=== PATIENT | male | born 1955 | race Caucasian/White ===

== ENCOUNTER 2019-10-01 11:19 | Inpatient (IN) | payer OTHER ==
[2019-10-01] MEDS ORDERED: ATROPINE SULF 1 MG/10 ML SYR IV ONE (11:53)
[2019-10-01] MEDS ORDERED: ASPIRIN 81 MG CHEWABLE TABLET ONE (11:53)
[2019-10-01 12:06] LABS: Protime INR 1.09
[2019-10-01 12:10] LABS: Absolute Lymphocytes (CBC) 1.2 K/uL (0.7-4.9); Basophils % 1.4 % (0-1.3); Hematocrit 38.4 % (39.6-49.0); Lymphocytes % 19.7 % (15.3-44.8); MPV 8.6 fL (7.6-11.3); RBC Red Blood Cell Count 4.21 M/uL (4.33-5.43)
--- NOTE | 2019-10-01 12:19 | RAD REPORT ---
EXAM DESCRIPTION: RAD - Chest Single View - 10/01/2019 12:10 pm CLINICAL HISTORY: near syncope, bradycardia Chest pain. COMPARISON: No comparisons FINDINGS: Portable technique limits examination quality. The lungs are grossly clear. The heart is normal in size. No displaced fractures. IMPRESSION: No acute intrathoracic process suspected.
[2019-10-01 12:22] LABS: BUN Blood Urea Nitrogen 9 mg/dL (7-18); Bicarbonate 27 mmol/L (21-32); Glucose Level 98 mg/dL (74-106); Magnesium 2.2 mg/dL (1.8-2.4); NT PRO-BNP 807 pg/mL (<125); Potassium 3.5 mmol/L (3.5-5.1); Sodium Level 141 mmol/L (136-145); Troponin (Emerg Dept Use Only) < 0.02 ng/mL (0.0-0.045)
[2019-10-01 12:37] LABS: T3 Free 2.9 pg/mL (2.18-3.98); T4,Total 10.2 ug/dL (4.5-12.1); Thyroid Stimulating Hormone 1.75 uIU/mL (0.360-3.740)
--- NOTE | 2019-10-01 12:49 | ER ---
[facility] Name: Shawn Culver Age: 64 yrs Sex: Male : 1955 Arrival Date: 10/01/2019 Time: 11:24 Bed 2 Private MD: Diagnosis: Bradycardia, unspecified;Syncope and collapse Presentation: 10/01 11:30 Presenting complaint: Patient states: became dizzy and felt like he was going to pass em out, denies passing out, reports feeling better now, denies chest pain or shortness of breath. Transition of care: patient was not received from another setting of care. Onset of symptoms was October 01, 2019. Risk Assessment: Do you want to hurt yourself or someone else? Patient reports no desire to harm self or others. Initial Sepsis Screen: Does the patient meet any 2 criteria? No. Patient's initial sepsis screen is negative. Does the patient have a suspected source of infection? No. Patient's initial sepsis screen is negative. Care prior to arrival: None. 11:30 Method Of Arrival: Ambulatory em 11:30 Acuity: CATALINA 2 em Historical: - Allergies: 11:49 No Known Allergies; em - Home Meds: 11:49 metoprolol tartrate 100 mg Oral tab [Active]; meloxicam 15 mg oral tab [Active]; em amlodipine 10 mg tab [Active]; lisinopril 30 mg Oral tab [Active]; isosorbide mononitrate 30 mg Oral Tb24 [Active]; - PMHx: 11:49 Hypertension; em - PSHx: 11:49 Tonsillectomy; em - Immunization history:: Adult Immunizations up to date. - Social history:: Smoking status: Patient reports the use of cigarette tobacco products, smokes two packs cigarettes per day. - Ebola Screening: : Patient negative for fever greater than or equal to 101.5 degrees Fahrenheit, and additional compatible Ebola Virus Disease symptoms Patient denies exposure to infectious person Patient denies travel to an Ebola-affected area in the 21 days before illness onset No symptoms or risks identified at this time. - Family history:: not pertinent. - Hospitalizations: : No recent hospitalization is reported. Screenin:33 Abuse screen: Denies threats or abuse. Nutritional screening: No deficits noted. em Tuberculosis screening: No symptoms or risk factors identified. Fall Risk No fall in past 12 months (0 pts). No secondary diagnosis (0 pts). IV access (20 points). Total Underwood Fall Scale indicates No Risk (0-24 pts). Assessment: 11:31 General: Appears in no apparent distress. comfortable, Behavior is calm, cooperative. em Pain: Denies pain. Neuro: Level of Consciousness is awake, alert, obeys commands, Oriented to person. Cardiovascular: Denies chest pain, shortness of breath, Capillary refill < 3 seconds Patient's skin is warm and dry. Rhythm is sinus bradycardia. Respiratory: Airway is patent Respiratory effort is even, unlabored, Respiratory pattern is regular, symmetrical, Denies shortness of breath. GI: Patient currently denies nausea. Derm: Skin is intact, is thin, Skin is pink, warm \T\ dry. Musculoskeletal: Capillary refill < 3 seconds, Range of motion: intact in all extremities. 12:02 Reassessment: Patient appears in no apparent distress at this time. No changes from em previously documented assessment. Patient and/or family updated on plan of care and expected duration. Pain level reassessed. Patient denies pain at this time. Patient states symptoms have improved. 13:24 Reassessment: Patient appears in no apparent distress at this time. No changes from em previously documented assessment. Patient and/or family updated on plan of care and expected duration. Pain level reassessed. Patient denies pain at this time. Vital Signs: 11:44 BP 144 / 57; Pulse 32 MON; Resp 16; Pulse Ox 100% on R/A; em 11:57 BP 145 / 63; Pulse 31; Resp 16; Pulse Ox 100% on R/A; em 12:00 BP 127 / 73; Pulse 39; em 12:02 BP 114 / 68; Pulse 66; em 13:24 BP 149 / 72; Pulse 56; Resp 14; Temp 98.4; Pulse Ox 100% on R/A; Pain 0/10; em 11:44 at bedside, aware of pt VS em ED Course: 11:24 Patient arrived in ED. mr 11:28 Cortez Baldwin MD is Attending Physician. rn 11:29 Branden Lal, LISANDRA is Primary Nurse. em 11:33 Patient has correct armband on for positive identification. Placed in gown. Bed in low em position. Call light in reach. Adult w/ patient. 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 Pulse ox on. NIBP on. 11:45 Arm band placed on. em 11:45 Initial lab(s) drawn, by me, sent to lab. Inserted saline lock: 20 gauge in right em antecubital area, using aseptic technique. Blood collected. 11:47 Triage completed. em 12:10 XRAY Chest (1 view) In Process Unspecified. EDMS 12:48 CT Head Brain wo Cont In Process Unspecified. EDMS 12:48 Ruthie Crow MD is Hospitalizing Provider. rn 13:24 No provider procedures requiring assistance completed. Patient admitted, IV remains in em place. Administered Medications: 11:58 Drug: Atropine 0.5 mg Route: IVP; Site: right antecubital; em 12:00 Follow up: Response: No adverse reaction; Cardiac rhythm is unchanged em 12:02 Drug: Atropine 0.5 mg Route: IVP; Site: right antecubital; em 12:04 Follow up: Response: No adverse reaction; Cardiac rhythm changed em 13:16 Drug: Aspirin 81 mg Route: PO; em 13:21 Follow up: Response: No adverse reaction em Outcome: 12:49 Decision to Hospitalize by Provider. rn 13:57 Admitted to Tele accompanied by tech, via wheelchair, room 408, with chart, Report em called to LISANDRA Devries 13:57 Condition: good 13:57 Instructed on the need for admit, Demonstrated understanding of instructions. 14:08 Patient left the ED. em Signatures: Dispatcher [employer] Kelly Sultana Edgar, RN RN Cortez Baldwin MD MD rn
--- NOTE | 2019-10-01 12:49 | EDPHYS ---
Physician Documentation [facility] Name: Shawn Culver Age: 64 yrs Sex: Male : 1955 Arrival Date: 10/01/2019 Time: 11:24 Bed 2 Private MD: ED Physician Cortez Baldwin HPI: 10/01 12:05 This 64 yrs old Male presents to ER via Ambulatory with complaints of rn dizziness, weakness, near syncope. 12:05 The patient has experienced near-syncope. Onset: The symptoms/episode began/occurred rn just prior to arrival. Duration: This was a single episode. Associated signs and symptoms: Pertinent positives: dizziness, lightheadedness, Pertinent negatives: abdominal pain, blurred vision, chest pain. Current symptoms: Currently, the patient is not experiencing any symptoms. The patient has not experienced similar symptoms in the past. Reports almost passed out, got lightheaded, was standing at work, no change in position, no preceding or current chest pain/sob/abd pain. No focal neuro complaint. Feels better now. No recent medication change or head injury.. Historical: - Allergies: 11:49 No Known Allergies; em - Home Meds: 11:49 metoprolol tartrate 100 mg Oral tab [Active]; meloxicam 15 mg oral tab [Active]; em amlodipine 10 mg tab [Active]; lisinopril 30 mg Oral tab [Active]; isosorbide mononitrate 30 mg Oral Tb24 [Active]; - PMHx: 11:49 Hypertension; em - PSHx: 11:49 Tonsillectomy; em - Immunization history:: Adult Immunizations up to date. - Social history:: Smoking status: Patient reports the use of cigarette tobacco products, smokes two packs cigarettes per day. - Ebola Screening: : Patient negative for fever greater than or equal to 101.5 degrees Fahrenheit, and additional compatible Ebola Virus Disease symptoms Patient denies exposure to infectious person Patient denies travel to an Ebola-affected area in the 21 days before illness onset No symptoms or risks identified at this time. - Family history:: not pertinent. - Hospitalizations: : No recent hospitalization is reported. ROS: 12:05 Constitutional: Negative for fever, chills, and weight loss, Eyes: Negative for injury, rn pain, redness, and discharge, Neck: Negative for injury, pain, and swelling, Cardiovascular: Negative for chest pain, palpitations, and edema, Respiratory: Negative for shortness of breath, cough, wheezing, and pleuritic chest pain, Abdomen/GI: Negative for abdominal pain, nausea, vomiting, diarrhea, and constipation, MS/Extremity: Negative for injury and deformity, Skin: Negative for injury, rash, and discoloration, Neuro: Negative for headache, numbness, tingling, and seizure. Exam: 11:44 ECG was reviewed by the Attending Physician. rn 12:05 Constitutional: This is a well developed, well nourished patient who is awake, alert, rn and in no acute distress. Head/Face: Normocephalic, atraumatic. Eyes: Pupils equal round and reactive to light, extra-ocular motions intact. Lids and lashes normal. Conjunctiva and sclera are non-icteric and not injected. Cornea within normal limits. Periorbital areas with no swelling, redness, or edema. Neck: Trachea midline, no thyromegaly or masses palpated, and no cervical lymphadenopathy. Supple, full range of motion without nuchal rigidity, or vertebral point tenderness. No Meningismus. Cardiovascular: Bradycardic, regular Respiratory: Lungs have equal breath sounds bilaterally, clear to auscultation. No increased work of breathing, no retractions or nasal flaring. Abdomen/GI: soft, non-tender Skin: Warm, dry with normal turgor. Normal color with no rashes, no lesions, and no evidence of cellulitis. MS/ Extremity: Pulses equal, no cyanosis. Neurovascular intact. Full, normal range of motion. Equal circumference. Neuro: Awake and alert, GCS 15, oriented to person, place, time, and situation. Cranial nerves II-XII grossly intact. Motor strength 5/5 in all extremities. Sensory grossly intact. Cerebellar exam normal. Normal gait. Vital Signs: 11:44 BP 144 / 57; Pulse 32 MON; Resp 16; Pulse Ox 100% on R/A; em 11:57 BP 145 / 63; Pulse 31; Resp 16; Pulse Ox 100% on R/A; em 12:00 BP 127 / 73; Pulse 39; em 12:02 BP 114 / 68; Pulse 66; em 13:24 BP 149 / 72; Pulse 56; Resp 14; Temp 98.4; Pulse Ox 100% on R/A; Pain 0/10; em 11:44 at bedside, aware of pt VS em MDM: 11:28 Patient medically screened. rn 11:51 Differential Diagnosis: cardiac arrhythmia, idiopathic syncope, vasovagal episode. Data rn reviewed: vital signs, nurses notes, EKG. ED course: pt with bradycardia, no stemi, lookds more like J point elevation and LVH, and patient denies chest pain/sob. No new medications, but takes 100mg metoprolol and imdur in addition to lisinopril. Bradycardia most likely cause of his symptoms today. Denies taking any extra meds or recent changes.. 12:03 ED course: Responded well to atropine 1mg, HR now in 60s. rn 12:48 Counseling: I had a detailed discussion with the patient and/or guardian regarding: the rn historical points, exam findings, and any diagnostic results supporting the discharge/admit diagnosis, lab results, radiology results, the need for further work-up and treatment in the hospital. Response to treatment: the patient's symptoms have markedly improved after treatment, the patient is now symptom free. ED course: Admitted to Dr. Crow for near syncope and bradycardia, most likely medication related, but will need cardiology consult. . 10/01 11:44 Order name: Basic Metabolic Panel; Complete Time: 12:32 rn 10/01 11:44 Order name: CBC with Diff; Complete Time: 12:32 rn 10/01 11:44 Order name: Magnesium; Complete Time: 12:32 rn 10/01 11:44 Order name: NT PRO-BNP; Complete Time: 12:32 rn 10/01 11:44 Order name: PT-INR; Complete Time: 12:32 rn 10/01 11:44 Order name: Troponin (emerg Dept Use Only); Complete Time: 12:32 rn 10/01 12:00 Order name: TSH; Complete Time: 12:44 sg 10/01 12:00 Order name: T3 Free; Complete Time: 12:44 sg 10/01 12:00 Order name: T4,Total; Complete Time: 12:44 sg 10/01 12:59 Order name: CBC with Automated Diff EDMS 10/01 12:59 Order name: CBC with Automated Diff EDMS 10/01 12:59 Order name: Comprehensive Metabolic Panel EDMS 10/01 12:59 Order name: Comprehensive Metabolic Panel [facility] 10/01 12:59 Order name: Lipid Profile [facility] 10/01 11:44 Order name: XRAY Chest (1 view); Complete Time: 12:32 rn 10/01 11:44 Order name: EKG; Complete Time: 11:44 rn 10/01 11:44 Order name: Cardiac monitoring; Complete Time: 12:04 rn 10/01 11:44 Order name: EKG - Nurse/Tech; Complete Time: 12:04 rn 10/01 11:44 Order name: IV Saline Lock; Complete Time: 12:04 rn 10/01 11:44 Order name: Labs collected and sent; Complete Time: 12:04 rn 10/01 11:44 Order name: O2 Per Protocol; Complete Time: 12:04 rn 10/01 11:44 Order name: O2 Sat Monitoring; Complete Time: 12:04 rn 10/01 11:50 Order name: CT Head Brain wo Cont; Complete Time: 13:11 rn 10/01 12:59 Order name: CONS Pharmacy Consult [facility] 10/01 12:59 Order name: Heart Healthy [facility] 10/01 12:59 Order name: Lipid Profile [facility] EC:44 Rate is 31 beats/min. Rhythm is regular. QRS [place] is Normal. [place] interval is normal. QRS rn interval is normal. QT interval is normal. No Q waves. T waves are Inverted in leads II, III, aVF, V5, V6. No ST changes noted. Clinical impression: Sinus bradycardia and Nonspecific t wave inversion, LVH. Interpreted by me. Reviewed by me. Administered Medications: 11:58 Drug: Atropine 0.5 mg Route: IVP; Site: right antecubital; em 12:00 Follow up: Response: No adverse reaction; Cardiac rhythm is unchanged em 12:02 Drug: Atropine 0.5 mg Route: IVP; Site: right antecubital; em 12:04 Follow up: Response: No adverse reaction; Cardiac rhythm changed em 13:16 Drug: Aspirin 81 mg Route: PO; em 13:21 Follow up: Response: No adverse reaction em Disposition: 10/01/19 12:49 Hospitalization ordered by Ruthie Crow for Inpatient Admission. Preliminary diagnosis are Bradycardia, unspecified, Syncope and collapse. - Bed requested for Telemetry/MedSurg (Inpatient). - Status is Inpatient Admission. em - Condition is Stable. - Problem is new. - Symptoms have improved. UTI on Admission? No Signatures: Dispatcher [employer] EDHarshad Vann RN RN Branden Lal RN RN Cortez Baldwin MD MD turning machine operator: (The following items were deleted from the chart) 13:10 12:49 Hospitalization Ordered by Ruthie Crow MD for Inpatient Admission. Preliminary sg diagnosis is Bradycardia, unspecified; Syncope and collapse. Bed requested for Telemetry/MedSurg (Inpatient). Status is Inpatient Admission. Condition is Stable. Problem is new. Symptoms have improved. UTI on Admission? No. rn 14:08 13:10 10/01/2019 12:49 Hospitalization Ordered by Ruthie Crow MD for Inpatient em Admission. Preliminary diagnosis is Bradycardia, unspecified; Syncope and collapse. Bed requested for Telemetry/MedSurg (Inpatient). Status is Inpatient Admission. Condition is Stable. Problem is new. Symptoms have improved. UTI on Admission? No. sg
[2019-10-01] MEDS ORDERED: ALBUTEROL 2.5 MG/3 ML NEB SOL NEB PRN (12:56)
[2019-10-01] MEDS ORDERED: ONDANSETRON 4 MG/2 ML VIAL IV PRN (12:56)
--- NOTE | 2019-10-01 12:56 | RAD REPORT ---
EXAM DESCRIPTION: CT - Head Brain Wo Cont - 10/01/2019 12:48 pm CLINICAL HISTORY: Dizziness, presyncope COMPARISON: None. TECHNIQUE: Axial 5 mm thick images of the head were obtained without IV contrast. All CT scans are performed using dose optimization technique as appropriate and may include automated exposure control or mA/KV adjustment according to patient size. FINDINGS: No intracranial hemorrhage, mass, edema or shift of mid-line structures. No acute infarcti on changes seen. No abnormal extra-axial fluid collections. Ventricles are normal size. Atrophy is mi nimal. Mild chronic ischemic change. Mastoid air cells and visualized portions of the paranasal sinuses are clear. No acute bony findings. IMPRESSION: Minimal atrophy and mild chronic ischemic change. No acute intracranial findings.
--- NOTE | 2019-10-01 13:37 | EKG ---
Test Date: 2019-10-01 Test Time: 11:44:32 Cleaner And Trimmer: GLORIA MEASUREMENT RESULTS: Intervals: Rate: 31 FL: 190 QRSD: 104 QT: 548 QTc: 393 [place]: P: 65 FL: 190 QRS: 60 T: -38 INTERPRETIVE STATEMENTS: Marked sinus bradycardia ST elevation, consider anterior injury or acute infarct ACUTE MS Abnormal ECG Compared to ECG 07/22/2006 04:19:35 ST (T wave) deviation now present Myocardial infarct finding now present T-wave abnormality no longer present Electronically Signed On 10-01-19 13:36:51 CHILD CUSTODY EVALUATOR by Shahab Hampton
--- NOTE | 2019-10-01 14:24 | P.HP ---
Certification for Inpatient Patient admitted to: Observation Patient will require the following post-hospital care: None Practitioner: I am a practitioner with admitting privileges, knowledge of patient current condition, hospital course, and medical plan of care. Services: Services provided to patient in accordance with Admission requirements found in Title 42 Section 412.3 of the Code of Federal Regulations Patient History Date of Service: 10/02/19 Reason for admission: Near syncope History of Present Illness: Mr Culver is a 64-year-old male with history of hypertension who presented to the ER after a near syncope event this morning, while at work. Patient reported sudden onset of generalized weakness followed by lightheadedness and then he fell to his knees and hand. He denies any LOC. He reports many episodes of lightheadedness with no LOC. Allergies No Known Allergies Allergy (Unverified 10/01/19 13:45) Home Medications: Amlodipine [Norvasc] 10 mg PO DAILY 10/01/19 Isosorbide Mononitrate [Isosorbide Mononitrate ER] 1 tab PO DAILY 10/01/19 Lisinopril [Zestril] 30 mg PO DAILY 10/01/19 Meloxicam 15 mg PO DAILY 10/01/19 Metoprolol Tartrate 100 mg PO DAILY 10/01/19 - Past Medical/Surgical History -: Hypertension -: Tonsillectomy - Family History Mother -: Heart disease, Lung disease Father -: Heart disease, Cancer - Social History Smoking Status: Current every day smoker Alcohol use: No CD- Drugs: No Review of Systems 10-point ROS is otherwise unremarkable Neurological: Weakness Physical Examination - Vital Signs Blood Pressure: 127/73 Pulse: 39 Respirations: 16 - Physical Exam General: Alert, In no apparent distress HEENT: Atraumatic, PERRLA, Mucous membr. moist/pink, EOMI, Sclerae nonicteric Neck: Supple, 2+ carotid pulse no bruit, No LAD, Without JVD or thyroid abnormality Respiratory: Clear to auscultation bilaterally, Normal air movement Cardiovascular: Normal S1 S2, Other (Bradycardia) Gastrointestinal: Normal bowel sounds, No tenderness Musculoskeletal: No tenderness Integumentary: No rashes Neurological: Normal gait, Normal speech, Normal strength at 5/5 x4 extr, Normal tone, Normal affect Lymphatics: No axilla or inguinal lymphadenopathy - Studies Laboratory Data (last 24 hrs) 10/01/19 11:50: PT 12.8 H, INR 1.09 10/01/19 11:50: WBC 5.9, Hgb 13.3 L, Hct 38.4 L, Plt Count 178 10/01/19 11:50: Sodium 141, Potassium 3.5, BUN 9, Creatinine 1.25, Glucose 98, Magnesium 2.2 Assessment and Plan - Plan Mr Culver is 64 y/o male who presented with near syncope. #Symptomatic bradycardia- EKG noted, probably early repolarization. He denies any chest pain. -He is on metoprolol 100mg daily, which he took this morning. -Trend troponin. obtain Echocardiogram -Atropine at bedside. Remain on telemetry. Repeat EKG. -reverse bb effect with glucagon -Avoid chronotropic meds -TSH is unremarkable. -Supervisor Mapping consulted. #Near syncope- CT brain is unremarkable for acute pathology -likely due to bradycardia. #Hypertension-per patient, difficult to control hence high dosage of meds. -Monitor BP closely. -resume other antihypertensives -Hydralazine IV prn #Tobacco use- smoking cessation strongly advised Patient is full code. His daughter is NOK - Advance Directives Does patient have a Living Will: No Does patient have a Durable POA for Healthcare: No
[2019-10-01] MEDS ORDERED: D50W 25 GM/50 ML SYRINGE/VIAL IV PRN (14:51)
[2019-10-01] MEDS ORDERED: GLUCAGON 1 MG/VIAL IM PRN (14:51)
[2019-10-01] MEDS ORDERED: GLUCAGON 1 MG/VIAL IV STA (15:01)
[2019-10-01] MEDS ORDERED: WATER FOR INJ,STERILE 10 ML ONE (15:11)
[2019-10-01] MEDS ORDERED: HYDRALAZINE HCL 20 MG/ML VIAL IV PRN (16:00)
[2019-10-01] MEDS ORDERED: ATROPINE SULFATE 1 MG/ML INJ IV ONE (16:00)
[2019-10-01] MEDS: INSULIN -REGULAR HUMAN 50 UNIT/0.5 ML ML SQ SCH ×2 (16:30→21:00)
[2019-10-01 16:52] LABS: Albumin 3.1 g/dL (3.4-5.0); Bilirubin Direct 0.1 mg/dL (0-0.2); Bilirubin Total 0.4 mg/dL (0.2-1.0); Protein, Total 5.7 g/dL (6.4-8.2)
[2019-10-01] MEDS ORDERED: ENOXAPARIN 40 MG/0.4 ML SQ SCH (17:00)
[2019-10-01 23:16] LABS: Urine Appearance CLEAR; Urine Bilirubin NEGATIVE (NEG); Urine Blood NEGATIVE (NEG); Urine Color YELLOW; Urine Glucose NEGATIVE (NEG); Urine Protein 1+ (NEG); Urine Specific Gravity <=1.005 (1.005-1.030); Urine Urobilinogen 0.2 mg/dL (0.2-1.0); Urine pH 6.5 (5.0-7.0)
[2019-10-01 23:24] LABS: Barbiturates NEGATIVE (NEGATIVE); Benzodiazepines NEGATIVE (NEGATIVE); Cocaine NEGATIVE (NEGATIVE); METHAMPHETAM NEGATIVE (NEGATIVE); Methadone NEGATIVE (NEGATIVE); Opiates NEGATIVE (NEGATIVE); Phencyclidine NEGATIVE (NEGATIVE); THC Cannibis NEGATIVE (NEGATIVE)
[2019-10-01 23:26] LABS: Urine Microscopic Reflex ORDER UMIC
[2019-10-01 23:48] LABS: Urine Bacteria <20 /HPF (NONE SEEN); Urine Culture Reflex Order NOT NEEDED; Urine RBC NONE SEEN /HPF (NONE SEEN)
--- NOTE | 2019-10-01 23:56 | P.PN ---
Date of Service: 10/01/19 alexander cross cover : notified of pt's bradycardia down to 32/33 sustained pt sleeping in bed w/ HR ~35, notified nursing of a/p as noted below when pt is woken up his HR goes up to mid 40's eval of the previous EKG does not demonstrate AVB or prolonged QRS A/P ekg, atropine at bedside, transfer to ICU c/w tele, obtain electrolytes bedrest atropine to the bedside will consider PPM or consider epi vs dopamine cardio to eval nicotine patch ordered noted by nursing that patient is non compliant w/ medical therapy of staying bed and going outside to smoke cigarettes on evaluation pt refuses to speak w/ M.D. but is made aware of the plan of care.
[2019-10-02] MEDS: NICOTINE 14 MG/PAT TD SCH ×2 (00:20→09:00)
[2019-10-02] MEDS ORDERED: ATROPINE SULFATE 1 MG/ML INJ IV PRN (00:59)
[2019-10-02 06:12] LABS: Bilirubin Total 0.3 mg/dL (0.2-1.0); Magnesium 2.3 mg/dL (1.8-2.4); Phosphorus 2.3 mg/dL (2.5-4.9); Potassium 3.8 mmol/L (3.5-5.1); Protein, Total 5.7 g/dL (6.4-8.2)
[2019-10-02 06:16] LABS: Absolute Lymphocytes (CBC) 1.2 K/uL (0.7-4.9); Basophils % 1.1 % (0-1.3); Hematocrit 37.9 % (39.6-49.0); Lymphocytes % 22.5 % (15.3-44.8); MPV 9.2 fL (7.6-11.3); RBC Red Blood Cell Count 4.11 M/uL (4.33-5.43)
[2019-10-02] MEDS: INSULIN -REGULAR HUMAN 50 UNIT/0.5 ML ML SQ SCH (07:30)
--- NOTE | 2019-10-02 08:37 | EKG ---
Test Date: 2019-10-01 Test Time: 12:04:11 Health Policy Analyst: GLORIA MEASUREMENT RESULTS: Intervals: Rate: 66 CO: 180 QRSD: 94 QT: 484 QTc: 507 [place]: P: 74 CO: 180 QRS: 47 T: -40 INTERPRETIVE STATEMENTS: Normal sinus rhythm ST elevation, consider early repolarization, pericarditis, or injury Prolonged QT Abnormal ECG Compared to ECG 10/01/2019 11:44:32 Sinus bradycardia no longer present ST (T wave) deviation still present Electronically Signed On 10-02-19 08:36:25 ENGINE REPAIRER PRODUCTION by Nate Narayan
[2019-10-02] MEDS ORDERED: LISINOPRIL 30 MG PO SCH (09:00)
--- NOTE | 2019-10-02 09:03 | CON ---
Identification: 64-year-old man. Chief Complaint: Syncope. History Of Present Illness: Mr. Culver is a gentleman, who takes 4 different blood pressure medicines. He takes them all once a day. He took them all yesterday morning, went to work, felt dizzy, fell, but was not quite syncopal according to him. He did lose his hat and glasses when he fell, broke his glasses, so he probably was unconscious at least a few seconds. Since he has been here in the [facility], he has been profoundly bradycardic, although his blood pressure at rest is 42 this morning when he is awake and 36 when he is asleep. The longest pause is about 2.5 seconds. His last dose of meto prolol was yesterday about 8 a.m., so roughly 24 hours ago. The metoprolol was not a slow release fo rm. This is the patient's only episode of syncope. He has never had myocardial infarction, stroke, diabetes, dyslipidemia. His home medications have been amlodipine 10, metoprolol 100, lisinopril 30, isosorbide mononitrate 30, and meloxicam 15. Since he has been in the hospital, his EKG shows sinus bradycardia, LVH with repolarization changes. His blood pressures have been elevated. Physical Examination: General: He is alert, oriented, pleasant, cooperative, not in distress. Vital Signs: Blood pressure 163/80, heart rate 42. Neck: No carotid bruit. Lungs: Clear. Cardiac: Normal. Abdomen: Soft. Extremities: Normal. No cyanosis, clubbing, or edema. Distal pulses are normal. The patient uses tobacco. He has been placed on the tobacco cessation program. Regarding his bradyc ardia, I think the patient should get an echocardiogram. He does not have hypothyroidism. He probab ly has sinus node dysfunction greatly exacerbated by the beta-tl. We will give another day with out beta-blockers, and see if he really needs a pacemaker. At this point, I think if we do stop the beta-tl, he will probably be okay to be discharged and follow as an outpatient, although the [facility] very likely holds the pacemaker for him at some point. It is not sure if this time is essential or not. Thank you very much for your kind referral of Mr. Shawn Culver. I will follow him with you. DOROTEO/MODL Voice ID: [id number] Report ID: [id number]
[2019-10-02] MEDS: lisinopriL 20 MG TAB PO SCH (10:41)
[2019-10-02] MEDS: AMLODIPINE 10 MG TAB PO SCH (10:41)
[2019-10-02 11:37] VITALS: O2SAT 99
--- NOTE | 2019-10-02 12:36 | P.PN ---
Subjective Date of Service: 10/02/19 Chief Complaint: Near syncope Transferred to ICU overnight due to sustained bradycardia in 30's while asleep. HR now in 30's despite wakeful state. He denies any new complaints. Still worried about his animals at home, not being cared for. He was ambulating last night, going down to smoke. Declined nicotine patch. Review of Systems 10-point ROS is otherwise unremarkable Physical Examination - Vital Signs Temperature: 98 F Blood Pressure: 127/73 Pulse: 39 Respirations: 16 Pulse Ox (%): 100 - Physical Exam General: Alert, In no apparent distress HEENT: Atraumatic, PERRLA, EOMI Neck: Supple, JVD not distended Respiratory: Clear to auscultation bilaterally, Normal air movement Cardiovascular: Normal S1 S2, Irregular heart rate/rhythm (Bradycardia) Gastrointestinal: Normal bowel sounds, No tenderness Musculoskeletal: No tenderness Integumentary: No rashes Neurological: Normal speech, Normal tone, Normal affect Lymphatics: No axilla or inguinal lymphadenopathy - Studies Laboratory Data (last 24 hrs) 10/02/19 05:07: Sodium 143, Potassium 3.8, BUN 14, Creatinine 1.22, Glucose 90, Phosphorus 2.3 L, Magnesium 2.3, Total Bilirubin 0.3, AST 19, ALT 31, Alkaline Phosphatase 81, Triglycerides 97, Cholesterol 124, HDL Cholesterol 32 L, Cholesterol/HDL Ratio 3.88 10/02/19 05:07: WBC 5.6, Hgb 12.8 L, Hct 37.9 L, Plt Count 150 L 10/01/19 16:08: Total Bilirubin 0.4, AST 18, ALT 26, Alkaline Phosphatase 83 10/01/19 16:08: Troponin I < 0.02 Medications List Reviewed: Yes Assessment And Plan - Plan Mr Culver is 64 y/o male who presented with near syncope. #Symptomatic bradycardia- EKG on admission noted, probably early repolarization. He denies any chest pain. -He was on metoprolol 100mg daily. Now discontinued. Given glucagon to reverse bb effect. -Trend troponin. ordered Echocardiogram -Atropine at bedside. Remain on telemetry monitoring, will consider epinephrine if needed. -Repeat EKG still with ST deviation. Rule out other possible etiologies. Upsetter following patient, recommendation appreciated. -Avoid chronotropic meds -TSH is unremarkable. -Possible AV node disease as well. PPM will be considered if no significant improvement. #Near syncope- CT brain is unremarkable for acute pathology -likely due to bradycardia. #Hypertension-per patient, was difficult to control hence high dosage of meds. -Monitor BP closely. -resumed other antihypertensives -Hydralazine IV prn #Tobacco use- smoking cessation strongly advised Patient is full code. His daughter is NOK Dispo- continue monitoring in ICU.
--- NOTE | 2019-10-02 14:21 | ECHO ---
HEIGHT: 5 ft 8 in WEIGHT: 148 lb 1 oz DATE OF STUDY: 10/02/[address]: Ruthie Crow 2-DIMENSIONAL: YES M.MODE: YES DOPPLER: YES COLOR FLOW: YES TDS: NO PORTABLE: NO DEFINITY: NO BUBBLE STUDY: NO DIAGNOSIS: SINUS BRADYCARDIA CARDIAC HISTORY: CATHERIZATION: NO SURGERY: NO PROSTHETIC VALVE: NO PACEMAKER: NO MEASUREMENTS (cm) DIASTOLIC (NORMALS) SYSTOLIC (NORMALS) IVSd 1.0 (0.6-1.2) LA Diam (1.9-4.0) LVEF 67% LVIDd 4.7 (3.5-5.7) LVIDs 3.0 (2.0-3.5) %FS 37% LVPWd 1.1 (0.6-1.2) Ao Diam 2.3 (2.0-3.7) 2 DIMENSIONAL ASSESSMENT: RIGHT ATRIUM: NORMAL LEFT ATRIUM: NORMAL RIGHT VENTRICLE: NORMAL LEFT VENTRICLE: NORMAL TRICUSPID VALVE: NORMAL MITRAL VALVE: NORMAL PULMONIC VALVE: NORMAL AORTIC VALVE: NORMAL PERICARDIAL EFFUSION: NONE AORTIC ROOT: NORMAL LEFT VENTRICULAR WALL MOTION: NORMAL DOPPLER/COLOR FLOW: NORMAL COMMENTS: NORMAL 2D ECHOCARDIOGRAM WITH DOPPLER. SINUS BRADYCARDIA 35 BEATS PER MINUTE. TECHNOLOGIST: Marian CIFUENTES
[2019-10-03 06:02] VITALS: BMI 22.2
[2019-10-03] MEDS: NICOTINE 14 MG/PAT TD SCH (08:15)
[2019-10-03] MEDS: lisinopriL 20 MG TAB PO SCH (08:16)
[2019-10-03] MEDS: AMLODIPINE 10 MG TAB PO SCH (08:16)
--- NOTE | 2019-10-03 09:36 | PN ---
I think Mr. Culver is in stable enough shape to be discharged today and recommend he be discharged taki ng lisinopril 40, hydrochlorothiazide 12.5, and amlodipine 10. We will avoid beta blockers. I do no t agree with using isosorbide dinitrate as a blood pressure medicine. It is usually very ineffective . He can call my office, make an appointment. We can do an outpatient monitor in a week or so, see if he has any significant pauses. I think his bradycardia will be well tolerated for now in [place]. He has sinus node dysfunction. At some point, he will probably require a pacemaker, but for now that can be delayed. DOROTEO/AARON Voice ID: [id number] Report ID: [id number]
--- NOTE | 2019-10-03 13:41 | P.DS ---
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 The time of discharge he was alert oriented responsive cooperative denies any shortness of breath vital signs stable blood pressure is satisfactory asymptomatic bradycardia labs reviewed satisfactory On examination is chest is clear cardiovascular system os sounds normal abdomen soft extremities no edema Vital Signs/Physical Exam: Temp Pulse Resp BP Pulse Ox 98.7 F 49 L 13 136/61 98 10/03/19 07:00 10/03/19 11:00 10/03/19 11:00 10/03/19 11:00 10/03/19 11:00 Laboratory Data at Discharge: WBC 5.6 K/uL (4.3-10.9) 10/02/19 05:07 Hgb 12.8 g/dL (13.6-17.9) L 10/02/19 05:07 Hct 37.9 % (39.6-49.0) L 10/02/19 05:07 Plt Count 150 K/uL (152-406) L 10/02/19 05:07 PT 12.8 SECONDS (9.5-12.5) H 10/01/19 11:50 INR 1.09 10/01/19 11:50 Sodium 143 mmol/L (136-145) 10/02/19 05:07 Potassium 3.8 mmol/L (3.5-5.1) 10/02/19 05:07 BUN 14 mg/dL (7-18) 10/02/19 05:07 Creatinine 1.22 mg/dL (0.55-1.3) 10/02/19 05:07 Glucose 90 mg/dL (74-106) 10/02/19 05:07 Phosphorus 2.3 mg/dL (2.5-4.9) L 10/02/19 05:07 Magnesium 2.3 mg/dL (1.8-2.4) 10/02/19 05:07 Total Bilirubin 0.3 mg/dL (0.2-1.0) 10/02/19 05:07 AST 19 U/L (15-37) 10/02/19 05:07 ALT 31 U/L (12-78) 10/02/19 05:07 Alkaline Phosphatase 81 U/L (45-117) 10/02/19 05:07 Troponin I < 0.02 ng/mL (0.0-0.045) 10/01/19 16:08 Triglycerides 97 mg/dL (<150) 10/02/19 05:07 Cholesterol 124 mg/dL (<200) 10/02/19 05:07 HDL Cholesterol 32 mg/dL (40-60) L 10/02/19 05:07 Cholesterol/HDL Ratio 3.88 10/02/19 05:07 Home Medications: Amlodipine [Norvasc] 10 mg PO DAILY 10/01/19 Isosorbide Mononitrate [Isosorbide Mononitrate ER] 1 tab PO DAILY 10/01/19 Lisinopril [Zestril] 30 mg PO DAILY 10/01/19 Meloxicam 15 mg PO DAILY 10/01/19 Patient Discharge Instructions: Patient to stop metoprolol and follow up with Dr. Narayan this coming Saturday Diet: Regular Activity: Ad denzel Followup: Nate Narayan MD [ACTIVE - CAN ADMIT] -
[2019-10-03 15:42] VITALS: BP 134/54; TEMP 98
[2019-10-04] MEDS ORDERED: hydroCHLOROthiazide 12.5 MG CAP PO SCH (09:00)
== END 2019-10-03 15:09 | disposition home or self-care (01) | DRG 310 ==
LOC: ER 11:19 → ERHOLD 12:57 → 4TH 13:57 → 3RD-ICU 10-02 00:05 → OBSVTOIN 10-02 08:10
PROVIDERS: ADMIT Hospitalist; ATTEND Hospitalist
DX: R00.1 Bradycardia, unspecified (principal); R55 Syncope and collapse; I10 Essential (primary) hypertension; F17.210 Nicotine dependence, cigarettes, uncomplicated; Z91.19 Patient's noncompliance with other medical treatment and regimen
CPT/HCPCS: 36415; 70450; 71045; 80048; 80053; 80061; 80076; 80307; 81003; 81015; 82947; 83735; 83880; 84100; 84436; 84443; 84481; 84484; 85025; 85610; 93005; 93306; 96374; 99285; G0378; J0461; J1610

== ENCOUNTER 2023-04-15 16:45 | Emergency (ER) | payer OTHER ==
--- OUTSIDE RECORDS SUMMARY | 2023-04-15 16:49 | XMS REPORT | Continuity of Care Document ---
:1955 Author Organization [facility] t Address [address] [place] [address] Care Team Providers Name Role Phone Unavailable Unavailable Unavailable Problems This patient has no known problems. Allergies, Adverse Reactions, Alerts This patient has no known allergies or adverse reactions. Medications This patient has no known medications. Procedures This patient has no known procedures. Results Test Description Test Time Test Comments Results Result Comments Source LIPID PANEL 2023-01-08 09:38:49 Test Item Value Reference Range Interpretation Comme nts CHOLESTEROL (test code = 2210) 167 MG/DL <200 TRIGLYCERIDES (test code = 2232) 148 MG/DL <150 HDL CHOLESTEROL (test code = 31 MG/DL >39 L 2219) CALC LDL CHOL (test code = 2237) 110 MG/DL <100 H NOTE: CALCULATED LDL IS BASED ON MATTHEW-ANTOINE METHOD WHICHINCLUDES A DJUSTABLE TRIGLYCERIDE:VL DL CHOLESTEROL RATIO.THIS FACT OR VARIES BY MEASURED TRIGLY CERIDE AND NON-HDLCHOLESTE ROL CONCENTRATIONS WITH INCREASED CALCULATED LDL SEENIN HIGHER T RIGLYCERIDE OR LOWER NON-HDL S PECIMENS. FOR MOREINFORMATION , SEE CLIENT ANNOUNCEMENT AT [email or web address] RISK RATIO LDL/HDL (test code = 3.55 RATIO <3.55 H 2237) COMPREHENSIVE METABOLIC [id number] 09:38:49 Test Item Value Reference Range Interpretation Comments GLUCOSE (test code = 131 MG/DL 70-99 H 2216) BUN (test code = 20 MG/DL 8-23 2207) CREATININE (test 1.57 MG/DL 0.80-1.40 H code = 2214) eGFR (2020 CKD-EPI) 48 >60 L The NKF -ASN (test code = 38794) ML/MIN/1.73 Taskforc e recommends use of Cystatin C to confirm eGFR in adults at risk for CKD . [facility] offers eGFR wit h Cystatin C-Creatinineusi ng the 2020 CKD-EPI eGFR_creat-cyst at equation (order code 3057) toincreas e the accuracy of est imated GFR. For more information, contactyour [facility] ount executive or se e announcement [email or web address] s CALC BUN/CREAT (test 13 RATIO 6-28 code = 2235) SODIUM (test code = 142 MEQ/L [phone]) POTASSIUM (test code 4.6 MEQ/L 3.5-5.4 = 2227) CHLORIDE (test code 106 MEQ/L 95-107 = 221) CARBON DIOXIDE (test 21 MEQ/L 19-31 code = 220) CALCIUM (test code = 8.7 MG/DL 8.5-10.5 2208) PROTEIN, TOTAL (test 6.4 G/DL 6.1-8.3 code = 222) ALBUMIN (test code = 3.9 G/DL 3.5-5.2 2200) CALC GLOBULIN (test 2.5 G/DL 1.9-3.7 code = 2240) CALC A/G RATIO (test 1.6 RATIO 1.0-2.6 code = 223) BILIRUBIN, TOTAL <0.2 MG/DL See_Comment [Automated message] (test code = 2207) The syste [employer] which generated this result transmitted ref erence range: <=1.2. T he reference range was not used to int erpret this result as normal/abnormal . ALKALINE PHOSPHATASE 104 U/L 40-125 (test code = 2204) AST (test code = 16 U/L 9-50 2217) ALT (test code = 18 U/L 5-50 [facility] deleon s 2218) important patho logy staff changes effective 11/07. New patholo gy staff will prov shakira uninterrupted, excellent patie nt care and clinic al consultation. S ee URL: [email or web address]. UNL ESS OTHERWISE INDIC ATED, ALL TESTING PER FORMED AT CLINICAL [facility] [employer] [address] [place] [address] KURTIS DAVALOS DIRECTOR: SAVAGE TOLENTINO M.D. CLIA NUMBER [id number] CAP ACCREDITATION N O. [id number] COMPREHENSIVE METABOLIC [id number] 08:50:36 Test Item Value Reference Range Interpretation Comments GLUCOSE (test code = 109 MG/DL 70-99 H 2216) BUN (test code = 14 MG/DL 8-23 2207) CREATININE (test 1.42 MG/DL 0.80-1.40 H code = 2214) eGFR (2020 CKD-EPI) 54 ML/MIN/1.73 >60 L (test code = 07236) CALC BUN/CREAT (test 10 RATIO 6-28 code = 2235) SODIUM (test code = 141 MEQ/L [phone]) POTASSIUM (test code 4.0 MEQ/L 3.5-5.4 = 2227) CHLORIDE (test code 106 MEQ/L 95-107 = 221) CARBON DIOXIDE (test 22 MEQ/L 19-31 code = 2206) CALCIUM (test code = 9.5 MG/DL 8.5-10.5 2208) PROTEIN, TOTAL (test 6.9 G/DL 6.1-8.3 code = 222) ALBUMIN (test code = 4.2 G/DL 3.5-5.2 2200) CALC GLOBULIN (test 2.7 G/DL 1.9-3.7 code = 2240) CALC A/G RATIO (test 1.6 RATIO 1.0-2.6 code = 2234) BILIRUBIN, TOTAL 0.3 MG/DL See_Comment [Automated message] (test code = 2207) The syste m which generated this result transmit bart reference range : <=1.2. The refe rence range was not u sed to interpret th is result as normal/abnormal . ALKALINE PHOSPHATASE 119 U/L 40-125 (test code = 2204) AST (test code = 15 U/L 9-50 2217) ALT (test code = 13 U/L 5-50 2218) LIPID [id number] 08:50:36 Test Item Value Reference Range Interpretation Comments CHOLESTEROL (test 181 MG/DL <200 code = 2210) TRIGLYCERIDES (test 168 MG/DL <150 H code = 2232) HDL CHOLESTEROL (test 30 MG/DL >39 L code = 2220) CALC LDL CHOL (test 123 MG/DL <100 H NOTE: C ALCULATED LDL code = 2237) IS BASED ON MATTHEW-ANTOINE METHOD WHICHINCLUDES ADJUSTABLE TRIGLYCERIDE:VL DL CHOLESTEROL RAT IO.THIS FACTOR VARIES B Y MEASURED TRIGLY CERIDE AND NON-HDLCHOL ESTEROL CONCENTRATIONS WITH INCREASED CALCU LATED LDL SEENIN HIGH ER TRIGLYCERIDE OR LOWER NON-HDL SPECIME NS. FOR MOREINFORMATION , SEE CLIENT ANNOUNCE MENT AT [email or web address] RISK RATIO LDL/HDL 4.10 RATIO <3.55 H UNLESS O THERWISE (test code = 2238) INDICATED , ALL TESTING PERFORMED [facility], [address] [place] [place] [id number] [place] [address] ANGELINA DIRECTOR: Dwain HOANG NUMBER [id number] CAP ACCREDITATION N O. [id number]
[2023-04-15] MEDS ORDERED: ENALAPRILAT 1.25 MG/ML VIAL IV ONE ×2 (17:22→18:17)
[2023-04-15 17:26] LABS: Hematocrit 37.3 % (39.6-49.0); MCV 94.7 fL (80-100); Platelets 179 thou/uL (152-406); RBC Red Blood Cell Count 3.94 M/uL (4.33-5.43)
[2023-04-15 17:28] LABS: Protime INR 1.11
[2023-04-15 17:41] LABS: Albumin 3.4 g/dL (3.4-5.0); Bilirubin Total 0.3 mg/dL (0.2-1.0); Potassium 3.9 mEq/L (3.5-5.1); Protein, Total 6.6 g/dL (6.4-8.2)
--- NOTE | 2023-04-15 18:05 | ER ---
Nurse's Notes [facility] Name: Shawn Culver Age: 67 yrs Sex: Male : 1955 Arrival Date: 04/15/2023 Time: 16:45 Bed 14 Private MD: Diagnosis: Abdominal aortic aneurysm, without rupture;Essential (primary) hypertension Presentation: 04/15 17:00 Chief complaint: transferred from CT due to aortic aneurysm. Pt c/o diarrhea for past 2 eh3 years, went to Doctor Dixon who ordered abdominal CT. Pt has not taken BP medicine today and does not know what meds he takes at home. Ebola Screen: No symptoms or risks identified at this time. Risk Assessment: Do you want to hurt yourself or someone else? Patient reports no desire to harm self or others. Onset of symptoms was April 15, 2023. 17:00 Method Of Arrival: Wheelchair 3 17:00 Acuity: CATALINA 2 eh3 17:00 Initial Sepsis Screen: Does the patient meet any 2 criteria? No. Patient's initial 3 sepsis screen is negative. Does the patient have a suspected source of infection? No. Patient's initial sepsis screen is negative. 17:00 Coronavirus screen: Vaccine status: Patient reports being unvaccinated. eh3 Triage Assessment: 17:06 General: Appears in no apparent distress. comfortable, Behavior is cooperative, eh3 appropriate for age, anxious. Pain: Denies pain. Neuro: Level of Consciousness is awake, alert, obeys commands, Oriented to person, place, time, situation. Cardiovascular: Capillary refill < 3 seconds Patient's skin is warm and dry. Respiratory: Airway is patent Respiratory effort is even, unlabored. GI: Abdomen is round non-distended. Derm: Skin is pink, warm \T\ dry. Musculoskeletal: Circulation, motion, and sensation intact. Historical: - Allergies: 17:06 No Known Allergies; eh3 - Immunization history:: Adult Immunizations unknown. - Social history:: Smoking status: Patient reports the use of cigarette tobacco products, smokes two packs cigarettes per day. Patient/guardian denies using alcohol. Screenin:06 [facility] ED Fall Risk Assessment (Adult) Score/Fall Risk Level 0 - 2 = Low Risk. Abuse eh3 screen: Denies threats or abuse. Denies injuries from another. Nutritional screening: No deficits noted. Tuberculosis screening: No symptoms or risk factors identified. Assessment: 17:06 Reassessment: No changes from previously documented assessment. See triage assessment. [facility] 17:30 Reassessment: Patient appears in no apparent distress at this time. Patient and/or 3 family updated on plan of care and expected duration. Pain level reassessed. Patient is alert, oriented x 3, equal unlabored respirations, skin warm/dry/pink. 18:00 Reassessment: Patient appears in no apparent distress at this time. Patient and/or 3 family updated on plan of care and expected duration. Pain level reassessed. Patient is alert, oriented x 3, equal unlabored respirations, skin warm/dry/pink. 19:00 Reassessment: No changes from previously documented assessment. Patient and/or family vc1 updated on plan of care and expected duration. Pain level reassessed. Patient is alert, oriented x 3, equal unlabored respirations, skin warm/dry/pink. 20:11 Reassessment: Nurse to nurse report received by LISANDRA Greene at [facility]. [facility] 20:38 Reassessment: No changes from previously documented assessment. Patient and/or family vc1 updated on plan of care and expected duration. Pain level reassessed. Patient is alert, oriented x 3, equal unlabored respirations, skin warm/dry/pink. Vital Signs: 17:00 BP 165 / 85; Pulse 48; Resp 18; Temp 98.2(O); Pulse Ox 100% on R/A; Weight 62.14 kg; 3 Height 5 ft. 8 in. ; 17:30 BP 170 / 74; Pulse 44; Resp 16; Pulse Ox 100% on R/A; 3 18:00 BP 159 / 75; Pulse 39; Resp 17; Pulse Ox 100% on R/A; 3 19:24 BP 165 / 74; Pulse 58; Resp 17; Pulse Ox 100% ; vc1 17:00 Body Mass Index 20.83 (62.14 kg, 172.72 cm) [facility] ED Course: 16:50 Patient arrived in ED. ph 16:51 Cory Aguilera DO is Attending Physician. ms3 16:53 Corie Culver, LISANDRA is Primary Nurse. 3 17:02 Triage completed. [facility] 17:06 IV is patent, with fluids infusing freely, with good blood return, CT IV maintained, eh3 22g LAC. 17:06 Arm band placed on. eh3 17:06 Patient has correct armband on for positive identification. Bed in low position. Call eh3 light in reach. Side rails up X2. Provided Education on: Use of call khan. Client placed on continuous cardiac and pulse oximetry monitoring. NIBP monitoring applied. Door closed. Noise minimized. Warm blanket given. 17:14 Inserted saline lock: 18 gauge in right antecubital area, using aseptic technique. ds4 Blood collected. 17:15 PT-INR Sent. ds4 17:15 CMP Sent. ds4 17:15 CBC with Diff Sent. ds4 18:[address] [facility]. bd 19:54 MARICARMEN provided ETA of 20 minutes. mb4 20:38 No provider procedures requiring assistance completed. Patient transferred, IV remains vc1 in place. Administered Medications: 17:12 Drug: Enalaprilat IV 0.625 mg Route: IV; Rate: calculated rate; Site: right antecubital;eh3 18:15 Drug: Enalaprilat IV 0.625 mg Route: IV; Rate: calculated rate; Site: left antecubital; eh3 Medication: 20:39 VIS not applicable for this client. vc1 Outcome: 18:05 ER care complete, transfer ordered by . ms3 20:39 Discharged to home ambulatory. vc1 20:39 Condition: good 20:39 Discharge instructions given to patient, Instructed on the need for admit. 20:39 Patient left the ED. vc1 Signatures: Noemi gAuiar Donovan ds4 Janice Culver, RN RN Britney Menard mb4 Cory Aguilera DO DO ms3 Keyla Hess RN RN vc1 Corie Culver RN RN eh3 Corrections: (The following items were deleted from the chart) 17:19 17:00 BP 165 / 85; Pulse 78bpm; Resp 18bpm; Pulse Ox 100% RA; eh3 eh3 17:21 17:00 BP 165 / 85; Pulse 78bpm; Resp 18bpm; Pulse Ox 100% RA; Temp 98.2F Oral; 62.14 eh3 kg; Height 5 ft. 8 in.; BMI: 20.8; eh3
--- NOTE | 2023-04-15 18:05 | EDPHYS ---
Physician Documentation [facility] Name: Shawn Culver Age: 67 yrs Sex: Male : 1955 Arrival Date: 04/15/2023 Time: 16:45 Bed 14 Private MD: ED Physician Cory Aguilera HPI: 04/15 18:05 This 67 yrs old Male presents to ER via Wheelchair with complaints of Aortic Aneurysm. ms3 18:05 67-year-old male with past medical history of hypertension presents from radiology ms3 after obtaining CT of his abdomen pelvis showing an abdominal aortic aneurysm. Patient denies abdominal pain, back pain, chest pain, nausea, vomiting. Patient states he did not take his blood pressure medications this morning. Patient endorses smoking, denies alcohol or drug use.. Historical: - Allergies: 17:06 No Known Allergies; eh3 - Immunization history:: Adult Immunizations unknown. - Social history:: Smoking status: Patient reports the use of cigarette tobacco products, smokes two packs cigarettes per day. Patient/guardian denies using alcohol. ROS: 18:05 Constitutional: Negative for fever, and chills. Neck: Negative for injury, pain, and ms3 swelling, Cardiovascular: Negative for chest pain, and palpitations. Respiratory: Negative for shortness of breath, cough, wheezing, and pleuritic chest pain, Abdomen/GI: Negative for abdominal pain, nausea, vomiting, diarrhea, and constipation, MS/Extremity: Negative for injury and deformity, Skin: Negative for injury, rash, and discoloration. 18:05 Back: Negative for injury and pain. 18:05 All other systems are negative. Exam: 18:05 Constitutional: This is a well developed, well nourished patient who is awake, alert, ms3 and in no acute distress. Head/Face: Normocephalic, atraumatic. Neck: Trachea midline, no cervical lymphadenopathy. Supple, full range of motion without nuchal rigidity, or vertebral point tenderness. No Meningismus. Chest/axilla: Normal chest wall appearance and motion. Nontender with no deformity. Cardiovascular: Regular rate and rhythm with a normal S1 and S2. No gallops, murmurs, or rubs. Normal PMI, no JVD. No pulse deficits. Respiratory: Lungs have equal breath sounds bilaterally, clear to auscultation and percussion. No rales, rhonchi or wheezes noted. No increased work of breathing, no retractions or nasal flaring. Abdomen/GI: Soft, non-tender, with normal bowel sounds. No distension or tympany. No guarding or rebound. No evidence of tenderness throughout. Skin: Warm, dry with normal turgor. Normal color with no rashes, no lesions, and no evidence of cellulitis. MS/ Extremity: Pulses equal, no cyanosis. Neurovascular intact. Full, normal range of motion. Vital Signs: 17:00 BP 165 / 85; Pulse 48; Resp 18; Temp 98.2(O); Pulse Ox 100% on R/A; Weight 62.14 kg; eh3 Height 5 ft. 8 in. ; 17:30 BP 170 / 74; Pulse 44; Resp 16; Pulse Ox 100% on R/A; eh3 18:00 BP 159 / 75; Pulse 39; Resp 17; Pulse Ox 100% on R/A; eh3 19:24 BP 165 / 74; Pulse 58; Resp 17; Pulse Ox 100% ; vc1 17:00 Body Mass Index 20.83 (62.14 kg, 172.72 cm) eh3 MDM: 17:52 Patient medically screened. ms3 18:05 Differential Diagnosis Aortic aneurysm vs COURTNEY vs HTN. ms3 18:29 ED course: Discussed case with Dr Alcantar and she accepts patient to [facility].. ms3 18:30 Data reviewed: vital signs, nurses notes, lab test result(s), radiologic studies, CT ms3 scan, and as a result, I will transfer. Consideration of Admission/Observation Patient to be transferred. Management of patient was discussed with the following: Dr Alcantar- Vascular Surgery. I considered the following discharge prescriptions or medication management in the emergency department Medications were administered in the Emergency Department. See MAR. Independent interpretation of the following test(s) in the Emergency Department CT Scan: My interpretation is CT abdomen/Pelvis reviewed by me shows large abdominal aneurysm. Care significantly affected by the following chronic conditions: Hypertension. Counseling: I had a detailed discussion with the patient and/or guardian regarding: the historical points, exam findings, and any diagnostic results supporting the discharge/admit diagnosis, lab results, radiology results, the need to transfer to another facility. 04/15 17:06 Order name: CBC with Diff; Complete Time: 17:52 ms3 04/15 17:06 Order name: CMP; Complete Time: 17:52 ms3 04/15 17:06 Order name: PT-INR; Complete Time: 17:52 ms3 04/15 18:04 Order name: Vital Signs; Complete Time: 18:15 ms3 Administered Medications: 17:12 Drug: Enalaprilat IV 0.625 mg Route: IV; Rate: calculated rate; Site: right antecubital;eh3 18:15 Drug: Enalaprilat IV 0.625 mg Route: IV; Rate: calculated rate; Site: left antecubital; eh3 Disposition Summary: 04/15/23 18:05 Transfer Ordered Transfer Location: [facility] ms3 Reason: Higher level of care ms3 Condition: Stable ms3 Problem: new ms3 Symptoms: are unchanged ms3 Accepting Physician: (04/15/23 20:39) vc1 Diagnosis - Abdominal aortic aneurysm, without rupture ms3 - Essential (primary) hypertension ms3 Forms: - Medication Reconciliation Form ms3 - SBAR form ms3 Critical care time excluding procedures: 18:31 Critical care time: Bedside Care: 30 minutes, Consultation: 5 minutes. Total time: 35 ms3 minutes Signatures: Dispatcher [employer] EDMS Cory Aguilera DO DO ms3 Keyla Hess RN RN vc1 Corie Culver RN RN 3 Corrections: (The following items were deleted from the chart) 20:39 18:05 ms3 vc1
[2023-04-15 21:19] VITALS: BP 165/74; O2SAT 100
== END 2023-04-15 20:39 | disposition short-term general hospital (02) ==
LOC: ER 16:45
DX: I71.40 Abdominal aortic aneurysm, without rupture, unspecified (principal); I10 Essential (primary) hypertension; F17.210 Nicotine dependence, cigarettes, uncomplicated
CPT/HCPCS: 36415; 80053; 85025; 85610; 99284